=== PATIENT | female | born 1970 | race African-American/Black ===

== ENCOUNTER 2023-02-09 07:16 | Emergency (ER) | payer OTHER, SELFPAY ==
[2023-02-09 07:26] VITALS: BP 160/76; PULSE 69; RESP 18; TEMP 36.5; O2SAT 100; BMI 36.3
[2023-02-09 07:52] LABS: Basophils Absolute Auto 0.03 K/uL (0.00-0.30); Basophils Percent Auto 0.3 % (0.0-3.0); Eosinophils Absolute Auto 0.11 K/uL (0.00-0.50); Eosinophils Percent Auto 1.1 % (0.0-7.0); Hematocrit 27.7 % (33.0-51.0); Hemoglobin* 8.3 gm/dL (12.0-16.0); Immature Granulocytes Abs Auto 0.02 K/uL (0.00-0.30); Immature Granulocytes Pct Auto 0.2 %; Lymphocytes Percent Auto 19.8 % (20-44); Mean Corpuscular HGB Conc 30 gm/dL (32-36); Mean Corpuscular Hemoglobin 22 pg (26-34); Mean Corpuscular Volume 75 fL (80-100); Monocytes Percent Auto 7.2 % (0.0-11.0); Neutrophils Absolute Auto 7.48 K/uL (1.7-7.0); Neutrophils Percent Auto 71.4 % (42.0-72.0); Platelet Count* 271 K/uL (140-440); RDW Coefficient of Variation % 18.1 % (11.5-15.5); Red Blood Count 3.71 m/uL (4.00-5.20); White Blood Count* 10.46 K/uL (4.50-11.00)
[2023-02-09 07:55] LABS: Slide Review Reflex No
--- NOTE | 2023-02-09 07:57 | CRLHL7_ITS ---
For Patients: As a result of the Century Cures Act, medical imaging exams and procedure reports are released immediately into your electronic medical record. You may view this report before your referring provider. If you have questions, please contact your health care provider. Indication: Abnormal bleeding Technique: Sonography of the pelvis was performed. The study was performed transabdominally and transvaginally. Doppler was also performed Comparison: July 21, 2020 Findings: The uterus measures 10.7 x 5.5 by 6.2 centimeters. An intramural myoma is noted posterior mid corpus measuring 2.6 x 2.4 x 2.6 centimeters. No additional myometrial masses are identified. The endometrium is thickened, irregular, heterogeneous and vascular on Doppler. The measurement is abnormal at 2.2 centimeters. These findings could represent endometrial proliferative pathology and follow-up evaluation is recommended to establish the histologic diagnosis. The ovaries are normal in size. The right ovary measures 3.8 x 2.3 x 2.5 centimeters and the left ovary measures 3.5 x 1.8 x 3.1 centimeters. Normal arterial and venous flow was demonstrated in both ovaries. Small benign-appearing cysts are noted associated with the ovaries. No suspicious adnexal or ovarian finding. No free fluid in the cul-de-sac Impression: Thickened heterogeneous endometrium measuring 2.2 centimeters. The thickened endometrial tissue is vascularized at Doppler. This could represent endometrial proliferative pathology. Follow-up evaluation to include histologic analysis is recommended. Myomatous uterus. Otherwise overall unremarkable exam. The endometrial thickening is new compared to the prior study. Dictated by Fredo Sánchez MD @ 02/09/2023 9:37:30 AM (Electronically Signed)
--- NOTE | 2023-02-09 07:59 | ED_ITS ---
HPI - Female Genitourinary General Chief complaint: Vaginal Bleeding Stated complaint: vaginally bleeding x 3 weeks Time Seen by Provider: 02/09/23 07:53 History of Present Illness HPI Narrative: Patient is a 52-year-old woman who has had intermittent vaginal bleeding for the last several days. She has history of irregular menses. She states she is not sexually active and is not . She has no abdominal pain. The bleeding subsided over the weekend as her primary physician put her on oral control. When the bleeding slowed down she stopped control in the bleeding started back up. Yesterday she was bleeding more than 1 pad per hour but now is bleeding much less than 1 pad per hour. She is not passing any clots. She has a history of a clotting disorder. She otherwise is feeling well. She states that in the past she has blood having enough that her hemo globin was 4.7 is she needed a blood transfusion. Her hemoglobin was drawn today prior to me seeing her and is actually 8.3. Patient takes no blood thinners or anticoagulants. Related Data Previous Rx's Medication Instructions Recorded escitalopram oxalate 10 mg tablet 10 mg PO QDAY #90 tabs 04/27/22 dextroamphetamine-amphetamine 20 30 mg (1.5 x 20 mg) PO QDAY #45 06/07/22 mg tablet tabs losartan 25 mg tablet 25 mg PO QDAY #90 tabs 09/20/22 dextroamphetamine-amphetamine ER 25 mg PO QAM #30 caps 09/27/22 25 mg 24hr capsule,extend release dextroamphetamine-amphetamine 30 30 mg PO QDAY #30 tabs 02/08/23 mg tablet Allergies Allergy/AdvReac Type Severity Reaction Status Date / Time No Known Drug Allergies Allergy Verified 02/09/23 07:29 Review of Systems Status of ROS: Reports: 10 or more systems reviewed and unremarkable except as noted in History and below Exam Narrative: Exam Narrative: EXAM GENERAL: Patient appears comfortable and well. EYES: No scleral icterus. LYMPH: No supraclavicular or cervical lymphadenopathy. SKIN: Visible skin seen during exam normal or with benign process only. EXT: No dependent lower extremity pedal edema. HEART: Regular rate and rhythm with no murmurs, rubs, or gallops. LUNGS: Clear to auscultation bilaterally with no crackles or wheezes. ABD: Soft, non tender, non distended. PSYCH: Good eye contact, speech is not pressured. Const: Vital Signs, click to edit/add: Vital Signs - 24 hr 02/09/23 07:26 Temperature 97.7 F Pulse Rate [Right Pulse Oximeter] 69 Respiratory Rate 18 Blood Pressure [Ri ght Upper Arm] 160/76 H Pulse Oximetry 100 Oxygen Delivery Me thod Room Air Course Course Hospital Course: Patient seen examined. Beta hCG added to her lab work as well as basic metabolic panel. Trans abdominal and transvaginal ultrasound ordered. Vital Signs Vital signs: Initial Vital Signs Temperature 97.7 F 02/09/23 07:26 Temperature Source Temporal Artery Scan 02/09/23 07:26 Pulse Rate 69 02/09/23 07:26 Respiratory Rate 18 02/09/23 07:26 Blood Pressure 160/76 H 02/09/23 07:26 Blood Pressure Mean 104 02/09/23 07:26 Blood Pressure Position Sitting 02/09/23 07:26 Pulse Oximetry 100 02/09/23 07:26 Oxygen Delivery Method Room Air 02/09/23 07:26 Vital Signs Temperature 97.7 F 02/09/23 07:26 Pulse Rate 69 02/09/23 07:26 Respiratory Rate 18 02/09/23 07:26 Blood Pressure 160/76 H 02/09/23 07:26 Pulse Oximetry 100 02/09/23 07:26 Oxygen Delivery Method Room Air 02/09/23 07:26 Temperature 97.7 F 02/09/23 07:26 Pulse Rate 69 02/09/23 07:26 Respiratory Rate 18 02/09/23 07:26 Blood Pressure 160/76 H 02/09/23 07:26 Pulse Oximetry 100 02/09/23 07:26 Oxygen Delivery Method Room Air 02/09/23 07:26 MDM - Female Genitourinary MDM Narrative Medical decision making narrative: Patient is a 52-year-old woman who presents with dysfunctional uterine bleeding. She took go oral control that she had at home over the weekend with improvement of her symptoms. She discontinued the control and her s ymptoms have returned. Patient has no other significant symptoms. She is currently bleeding less than 1 pad per hour. Hemoglobin is 8.3 electrolytes are normal serum is normal. Ultrasound shows a thickened endometrium. I did review the case with reinforced concrete inspector they do recommend continue symptomatic care as well as C initiation of norethrindrone 5 mg b.i.d. for 10 days followed by a daily new until follow-up by which time she will need endometrial biopsy and likely D&C. Differential Diagnosis Differential diagnosis: Likely cervicitis, vaginitis and dysmenorrhea Lab Data Labs: Lab Results 02/09/23 Range/Units 07:46 WBC 10.46 (4.50-11.00) K/uL RBC 3.71 L (4.00-5.20) m/uL Hgb 8.3 L (12.0-16.0) gm/dL Hct 27.7 L (33.0-51.0) % MCV 75 L (80-100) fL MCH 22 L (26-34) pg MCHC 30 L (32-36) gm/dL RDW Coeff of Kasandra 18.1 H (11.5-15.5) % Plt Count 271 (140-440) K/uL Neut % (Auto) 71.4 (42.0-72.0) % Lymph % (Auto) 19.8 L (20-44) % Candler % (Auto) 7.2 (0.0-11.0) % Eos % (Auto) 1.1 (0.0-7.0) % Baso % (Auto) 0.3 (0.0-3.0) % Neut # (Auto) 7.48 H (1.7-7.0) K/uL Lymph # (Auto) 2.10 (0.90-2.90) K/uL Candler # (Auto) 0.80 (0.00-0.90) K/UL Eos # (Auto) 0.11 (0.00-0.50) K/uL Baso # (Auto) 0.03 (0.00-0.30) K/uL Abs Immat Gran (auto) 0.02 (0.00-0.30) K/uL Imm/Tot Granulo (auto) 0.2 % Sodium 136 (135-149) mmol/L Potassium 3.7 (3.6-5.1) mmol/L Chloride 106 (96-114) mmol/L Carbon Dioxide 24 (20-32) mmol/L Anion Gap 6 L (7-15) mEq/L BUN 9 (7-30) mg/dL Creatinine 0.8 (0.5-1.5) mg/dL Estimated Creat Clear 68.82 Estimated GFR 89 ml/min Glucose 97 (60-115) mg/dL Calcium 8.2 L (8.4-10.6) mg/dL HCG, Qual Negative (Negative) Discharge Plan Discharge Clinical Impression: Abnormal vaginal bleeding Patient Disposition: Home, Self-Care Condition: Stable Instructions: Abnormal (Dysfunctional) Uterine Bleeding (ED) Additional Instructions: Meds as directed Continue symptomatic care Follow up with OBGYN for further evaluation Activity Level: No Restrictions Discharge Diet: Regular Prescriptions: No Action escitalopram oxalate 10 mg tablet 10 mg PO QDAY Qty: 90 3RF dextroamphetamine-amphetamine 20 mg tablet 30 mg PO QDAY Qty: 45 0RF Rx Instructions: 20 mg in AM, 10 mg midday. losartan 25 mg tablet 25 mg PO QDAY Qty: 90 3RF dextroamphetamine-amphetamine 25 mg capsule,extended release 24hr 25 mg PO QAM Qty: 30 0RF dextroamphetamine-amphetamine 30 mg tablet 30 mg PO QDAY Qty: 30 0RF Follow Up/Referrals: Carlos Eduardo Boyle MD [Primary Care Provider] - Stand Alone Forms: [employer] Info Instructions
[2023-02-09 08:14] LABS: Chloride* 106 mmol/L (96-114)
[2023-02-09 08:15] LABS: Potassium* 3.7 mmol/L (3.6-5.1); Sodium* 136 mmol/L (135-149)
[2023-02-09 08:17] LABS: Creatinine* 0.8 mg/dL (0.5-1.5); Est. Creatinine Clearance* 68.82; Estimated Glomerular Filt Rate 89 ml/min
[2023-02-09 08:18] LABS: Anion Gap 6 mEq/L (7-15); Blood Urea Nitrogen* 9 mg/dL (7-30); Calcium* 8.2 mg/dL (8.4-10.6); Carbon Dioxide* 24 mmol/L (20-32); Glucose* 97 mg/dL (60-115)
[2023-02-09 08:19] LABS: HCG Qualitative Serum* Negative (Negative)
== END 2023-02-09 09:21 | disposition home or self-care (01) ==
PROVIDERS: Emergency Provider Internal Medicine; PCP Family Medicine
DX: N93.9 Abnormal uterine and vaginal bleeding, unspecified (principal)
CPT/HCPCS: 36415; 76830; 76856; 80048; 84703; 85025; 93976; 99283; 99284

== ENCOUNTER 2023-02-15 15:50 | Outpatient (CLI) | payer OTHER, SELFPAY | END 2023-02-15 15:51 | disposition home or self-care (01) | LOC: NFLDREF 15:50 | PROVIDERS: PCP Family Medicine; Visit Provider Obstetrics & Gynecology | DX: N93.9 Abnormal uterine and vaginal bleeding, unspecified (principal) | CPT/HCPCS: 84443 ==

== ENCOUNTER 2023-03-23 15:49 | Outpatient (CLI) | payer OTHER, SELFPAY | END 2023-03-23 15:50 | disposition home or self-care (01) | LOC: NFLDREF 15:50 | PROVIDERS: PCP Family Medicine; Visit Provider Family Medicine | DX: I10 Essential (primary) hypertension (principal) | CPT/HCPCS: 80048 ==

== ENCOUNTER 2023-03-29 09:05 | Day surgery (SDC) | payer OTHER, SELFPAY ==
[2023-03-29 09:38] VITALS: BMI 41.1
[2023-03-29] MEDS: LACTATED RINGERS 1000 ML 1,000 ML 100 ML IV (10:00)
[2023-03-29] MEDS: SODIUM CHLORIDE 0.9 % (FLUSH) 10 ML SYRINGE IVF (10:00)
[2023-03-29 10:06] VITALS: BP 137/90; PULSE 74; RESP 16; TEMP 36.6; O2SAT 100
[2023-03-29 10:17] LABS: Hemoglobin* 7.8 gm/dL (12.0-16.0)
--- NOTE | 2023-03-29 10:18 | SUR.PREOP ---
HGB 7.8, critical value called by lab at 1018, Dr. Rodas notified at 1019.
--- NOTE | 2023-03-29 10:53 | W.ANESCHARGE ---
Anesthesia Charges Start Date/Time Anesthesia Start Date: 03/29/23 Anesthesia Start Time: 10:43 Stop Date/Time Anesthesia Stop Date: 03/29/23 Anesthesia Stop Time: 11:25
[2023-03-29] MEDS: BUPIVACAINE 0.5% 30 ML INJECTION (11:12)
[2023-03-29] MEDS: SILVER NITRATE APPLICATOR 1 EACH STICK..EA. TOPICAL (11:12)
[2023-03-29 11:21] VITALS: BP 141/80; PULSE 67; RESP 16; TEMP 36.4; O2SAT 100
--- NOTE | 2023-03-29 11:23 | P.GYNPRC_ITS ---
Procedure Note Date of procedure: 03/29/23 Pre-op diagnosis: Abnormal uterine bleeding Post-op diagnosis: same Procedure: Hysteroscopy, dilation and curettage, Mirena IUD insertion Anesthesia: MAC Complications: None Surgeon: Talib Garcia MD Estimated blood loss (mL): 5 IV fluids (mL): 600 Urine Output (mL): 50 Pathology: specimen obtained, sent to pathology (Endometrial curettings) Condition: stable Disposition: same day Findings: Findings: Bimanual exam: Anteverted uterus of about 9cm, regular contour, no adnexal masses. Intrauterine cavity: Large amount of fleshy/polypoid looking tissue, large amount of calcifications and fluffy and thick tissue, with increased vasculature. Bilateral cornual openings seen. Procedure Description: Patient was taken to the OR were MAC anesthesia was administered without difficulty. She was placed in the dorsal lithotomy position with David type st irrups. An exam under anesthesia as described above. Patient was then prepared and draped in the normal sterile fashion. A bivalved speculum was inserted in the posterior aspect of the vagina. 0.5% Marcaine was injected at 2 and 11 o'clock a total of about 5mL utilized. A single-tooth tenaculum was used to grasp the anterior lip of the cervix. The cervical os was sequentially dilated to accommodate the 5 mm TrueClear hysteroscope using Hegar dilators. A 5 mm 30 degree TrueClear hysteroscope was introduced under direct visualization, and the uterus was distended with normal saline. Findings as above. Soft tissue incisor blade from TrueClear hysteroscope system was introduced under direct visualization and endometrial curettings performed. Hysteroscope removed under direct visualization. The uterus was carefully sounded to 8.5 cm. Mirena IUD was placed without difficulty, strings were cut and left about 3 -4 cm long. Tenaculum was removed from the cervix and good hemostasis was noted at puncture sites after application of silver nitrate. Patient tolerated the procedure well. Instrument and sponge counts were correct x2. The patient was awakened from MAC anesthesia and taken to the recovery room in a stable condition. The patient will go home after recovering from anesthesia and meeting all the criteria for discharge. She was given instruction regarding follow-up visit in 2 weeks at [facility] and instructions for pain medication. Fluid deficit: 350mL A debrief was completed at the end of procedure, clearly stating name of procedure, EBL, and pathology specimens to be sent for analysis.
--- NOTE | 2023-03-29 11:26 | W.ANESCHARGE ---
Anesthesia Charges Start Date/Time Anesthesia Start Date: 03/29/23 Anesthesia Start Time: 10:43 Stop Date/Time Anesthesia Stop Date: 03/29/23 Anesthesia Stop Time: 11:25
[2023-03-29 11:33] VITALS: BP 140/79; PULSE 61; RESP 16; O2SAT 100
[2023-03-29 11:45] VITALS: BP 147/81; PULSE 70; RESP 16; O2SAT 100
[2023-03-29 12:00] VITALS: BP 147/81; PULSE 58; RESP 16; O2SAT 100
[2023-03-29 12:15] VITALS: BP 157/84; PULSE 63; RESP 16; O2SAT 100
--- NOTE | 2023-04-25 13:36 | PC.NURSE ---
Diagnosis: Iron deficiency anemia
== END 2023-03-29 12:36 | disposition home or self-care (01) ==
PROVIDERS: PCP Family Medicine; Visit Provider Obstetrics & Gynecology
PROC: 0UDB8ZZ Extraction of Endometrium, Via Natural or Artificial Opening Endoscopic (ICD-10-PCS; CPT 58558; principal; 2023-03-29 10:30)
DX: N93.8 Other specified abnormal uterine and vaginal bleeding (principal); Z30.430 Encounter for insertion of intrauterine contraceptive device
CPT/HCPCS: 58558; 58300; 00952; 36415; 81025; 85018; 88305; A9270; J0665; J1100; J2250; J2405; J2704; J3010; J7120; J7298

== ENCOUNTER 2023-06-13 08:15 | Outpatient (RCR) | payer OTHER, SELFPAY ==
--- NOTE | 2023-06-06 09:42 | URNOTE ---
Per Rachel Juarez at [facility], prior authorization is not required for Infed ([id number]).
[2023-06-08 08:18] VITALS: BP 134/81; PULSE 80; RESP 6; TEMP 36.3; O2SAT 100
[2023-06-13] VITALS (7 sets, daily range): BP systolic 133–160; BP diastolic 79–91; PULSE 66–87; RESP 16–18; TEMP 35.9–36.8; O2SAT 98–100
[2023-06-13] MEDS: IRON DEXTRAN COMPLEX 25 MG in 0.9 % SODIUM CHLORIDE 100 ml 100 ML 402 MG IVPB (08:59)
[2023-06-13] MEDS: IRON DEXTRAN COMPLEX 975 MG in 0.9 % SODIUM CHLORIDE 250 ml 250 ML 269.5 MG IVPB (10:48)
== END 2023-12-05 23:59 | disposition home or self-care (01) ==
LOC: CCIC 08:15
PROVIDERS: PCP Family Medicine; Referring Provider Family Medicine; Visit Provider Obstetrics & Gynecology
DX: D50.9 Iron deficiency anemia, unspecified (principal)
CPT/HCPCS: 96365; 96366; J1750; J7050

== ENCOUNTER 2023-09-12 15:45 | Outpatient (CLI) | payer OTHER, SELFPAY ==
--- NOTE | 2023-09-12 15:40 | MM_ITS ---
Patient: ETHAN COLEMAN Facility:?[facility] Patient ID:?[id number] Site Patient ID:?[id number]. Site :?[id number] Study:?XRay-Breast Bilateral 3D W/CAD-09/12/2023 4:18:49 PM Ordering Physician:?Carlos Eduardo Boyle Final Report: BILATERAL SCREENING MAMMOGRAM WITH COMPUTER-AIDED DETECTION AND TOMOSYNTHESIS TECHNIQUE: CC and MLO views were obtained. These mammographic images have been obtained using full-field digital technique. These mammographic images were interpreted with the benefit of computer-aided detection. Breast Tomosynthesis was used in this interpretation. COMPARISON FILM: Baseline. FINDINGS: There are scattered areas of fibroglandular density IMPRESSION: There is no radiographic evidence for malignancy. ASSESSMENT: BI-RADS Category 1: Negative RECOMMENDATION: Routine screening mammogram in 1 year. A lay language report of this examination will be provided to the patient. Jermaine Godinez M.D. Diagnostic Radiologist [email or web address] Transcribed: 12:10 p.[email or web address] sancehs/Dictated by: Jermaine Godinez MD @ 09/25/2023 10:15:00 AM Signed by:?Jermaine Godinez MD @09/25/2023 12:12:19 PM (Electronic Signature)
== END 2023-09-12 15:46 | disposition home or self-care (01) ==
LOC: MAMMO 15:46
PROVIDERS: PCP Family Medicine; Visit Provider Family Medicine
DX: Z12.31 Encounter for screening mammogram for malignant neoplasm of breast (principal)
CPT/HCPCS: 77063; 77067

== ENCOUNTER 2024-06-05 13:39 | Outpatient (CLI) | payer OTHER, SELFPAY | END 2024-06-05 13:40 | disposition home or self-care (01) | PROVIDERS: PCP Family Medicine; Visit Provider Family Medicine | DX: I10 Essential (primary) hypertension (principal); N92.1 Excessive and frequent menstruation with irregular cycle; Z13.220 Encounter for screening for lipoid disorders | CPT/HCPCS: 80053; 80061; 84439 ==

== ENCOUNTER 2025-03-25 09:50 | Outpatient (CLI) | payer OTHER, SELFPAY | END 2025-03-25 09:51 | disposition home or self-care (01) | LOC: LKVREF 09:51 | PROVIDERS: PCP Family Medicine; Visit Provider Family Medicine | DX: I10 Essential (primary) hypertension (principal) | CPT/HCPCS: 80048 ==

== ENCOUNTER 2025-05-06 10:22 | Outpatient (CLI) | payer OTHER, SELFPAY ==
--- NOTE | 2025-05-06 10:45 | CRLHL7_ITS ---
For Patients: As a result of the Century Cures Act, medical imaging exams and procedure reports are released immediately into your electronic medical record. You may view this report before your referring provider. If you have questions, please contact your health care provider. INDICATION: Pain in right arm COMPARISON: None. TECHNIQUE: Right upper extremity and neck venous ultrasound performed as well as ultrasound of left internal jugular vein including jin scale/2D, color Doppler, and spectral Doppler imaging including spectral waveform analysis. FINDINGS: The internal jugular, innominate, subclavian, axillary, basilic, cephalic, and brachial veins were patent and negative for thrombus. The left internal jugular vein was also patent and negative for thrombus where seen. Heterogeneous area of tissue within the lateral upper arm measuring 3.2 x 1.6 cm. IMPRESSION: No evidence for DVT in the right upper extremity and neck venous system. Indeterminate heterogeneous tissue within the subcutaneous fat of the right lateral upper arm measuring 3.2 x 1.6 cm, possibly representing subcutaneous bruising. No internal blood flow. Dictated by Jermaine Godinez MD @ 05/06/2025 11:46:52 AM (Electronically Signed)
== END 2025-05-06 10:23 | disposition home or self-care (01) ==
PROVIDERS: PCP Family Medicine
DX: M79.601 Pain in right arm (principal)
CPT/HCPCS: 93971